=== PATIENT | male | born 1990 | race Caucasian/White ===

== ENCOUNTER 2018-09-14 00:18 | Emergency (ER) | payer BC ==
[~2018-09-14] VITALS: Ht 193 cm; Wt 100.0 kg
[2018-09-14 00:22] VITALS: TEMP 98.2
[2018-09-14 00:55] LABS: BASO # 0.1 (0.0-0.2); BASO % 0.6 % (0.0-2.0); EOS % 0.1 % (0-4.0); GRAN # 6.1 (1.4-6.5); GRAN % 78.2 % (42.2-75.2); LYMPH % 13.3 % (20.0-51.0); MEAN CELL VOLUME 98 fl (80.0-100.0); MEAN CORPUSCULAR HGB CONC 37 g/dl (33.0-37.0); MEAN PLATELET VOLUME 9.8 fl (7.4-10.4); MONO # 0.6 (0.1-0.6); MONO % 7.4 % (1.7-9.3); PLATELET COUNT 130 K/mm3 (130-400); RED BLOOD COUNT 5.45 M/mm3 (4.20-5.60); REDCELL DISTRIBUTION WIDTH-CV 13.2 % (11.5-14.5)
[2018-09-14 00:56] LABS: HEMATOCRIT 53.4 % (42.0-52.0); HEMOGLOBIN 19.5 g/dl (13.5-18.0); MEAN CORPUSCULAR HEMOGLOBIN 36 pg (27.0-31.0)
[2018-09-14 01:04] LABS: ALANINE AMINOTRANSFERASE 199 U/L (21-72); ALBUMIN 4.9 gm/dL (3.5-5.0); ALKALINE PHOSPHATASE 83 U/L (50-136); ANION GAP 19 mmol/L (7-16); AST,SGOT 157 U/L (15-37); BILIRUBIN,TOTAL 4.1 mg/dL (0.0-1.0); BLOOD UREA NITROGEN 7 mg/dL (9-20); CALCIUM 9.3 mg/dL (8.4-10.2); CARBON DIOXIDE 24 mmol/L (22-30); CHLORIDE 92 mmol/L (98-107); CREATININE, serum 0.76 (0.66-1.25); GLUCOSE 129 mg/dL (74-106); POTASSIUM 3.4 mmol/L (3.4-5.0); SODIUM 135 mmol/L (137-145); TOTAL PROTEIN 8.2 gm/dL (6.4-8.2)
[2018-09-14 01:16] LABS: PROTHROMBIN TIME 11.3 SECONDS (9.7-12.8)
[2018-09-14 01:23] LABS: ALCOHOL(ethanol),MEDICAL < 10 mg/dL
[2018-09-14] MEDS ORDERED: LIBRIUM 25M25 MG/CAP PO (03:11)
[2018-09-14 03:33] VITALS: BP 158/108; PULSE 71
== END 2018-09-14 03:33 | disposition home or self-care (01) ==
LOC: COL.ER 00:18
PROVIDERS: Physician Assistant
DX: F10.239 Alcohol dependence with withdrawal, unspecified (principal)
CPT/HCPCS: J2560; J3360; J3475; J7030

== ENCOUNTER 2018-10-11 01:11 | Emergency (ER) | payer BC ==
[~2018-10-11] VITALS: Ht 193 cm; Wt 100.0 kg
[~2018-10-11 01:11] MED LIST: LIBRIUM 25M25 MG/CAP PO
[2018-10-11 01:14] VITALS: BP 160/99; PULSE 120; TEMP 98
[2018-10-11 01:30] LABS: BASO # 0.1 (0.0-0.2); BASO % 1.2 % (0.0-2.0); EOS # 0.2 (0.0-0.7); EOS % 2.1 % (0-4.0); GRAN # 3.9 (1.4-6.5); GRAN % 52.3 % (42.2-75.2); HEMATOCRIT 49.1 % (42.0-52.0); LYMPH # 2.7 (1.2-3.4); LYMPH % 36.4 % (20.0-51.0); MEAN CELL VOLUME 97 fl (80.0-100.0); MEAN CORPUSCULAR HEMOGLOBIN 36 pg (27.0-31.0); MEAN CORPUSCULAR HGB CONC 37 g/dl (33.0-37.0); MEAN PLATELET VOLUME 9.8 fl (7.4-10.4); MONO # 0.6 (0.1-0.6); MONO % 7.3 % (1.7-9.3); PLATELET COUNT 211 K/mm3 (130-400); RED BLOOD COUNT 5.07 M/mm3 (4.20-5.60); REDCELL DISTRIBUTION WIDTH-CV 11.9 % (11.5-14.5)
[2018-10-11 01:33] LABS: HEMOGLOBIN 18.1 g/dl (13.5-18.0)
[2018-10-11 02:02] LABS: ACETAMINOPHEN < 10 ug/mL (10-30); ALANINE AMINOTRANSFERASE 107 U/L (21-72); ALBUMIN 4.7 gm/dL (3.5-5.0); ALKALINE PHOSPHATASE 76 U/L (50-136); ANION GAP 18 mmol/L (7-16); AST,SGOT 74 U/L (15-37); BILIRUBIN,TOTAL 0.6 mg/dL (0.0-1.0); BLOOD UREA NITROGEN 9 mg/dL (9-20); CALCIUM 9.3 mg/dL (8.4-10.2); CARBON DIOXIDE 20 mmol/L (22-30); CHLORIDE 114 mmol/L (98-107); CREATININE, serum 1.15 (0.66-1.25); GLUCOSE 139 mg/dL (74-106); POTASSIUM 3.8 mmol/L (3.4-5.0); SODIUM 152 mmol/L (137-145); TOTAL PROTEIN 7.8 gm/dL (6.4-8.2)
[2018-10-11 02:03] LABS: SALICYLATE < 1.0 mg/dL
[2018-10-11 02:09] LABS: ALCOHOL(ethanol),MEDICAL 409 mg/dL
== END 2018-10-11 04:03 | disposition left against medical advice (07) ==
LOC: COL.ER 01:11
PROVIDERS: Emergency Medicine
DX: F10.229 Alcohol dependence with intoxication, unspecified (principal); R41.82 Altered mental status, unspecified; F12.90 Cannabis use, unspecified, uncomplicated; F17.220 Nicotine dependence, chewing tobacco, uncomplicated; Y90.8 Blood alcohol level of 240 mg/100 ml or more
CPT/HCPCS: J2405; J7030

== ENCOUNTER 2019-04-02 02:35 | Emergency (ER) | payer BC ==
[~2019-04-02] VITALS: Ht 193 cm; Wt 100.0 kg
[2019-04-02 02:37] VITALS: TEMP 98.7
[2019-04-02 07:00] VITALS: BP 119/64; PULSE 85
== END 2019-04-02 07:10 | disposition home or self-care (01) ==
LOC: COL.ER 02:35
DX: F10.129 Alcohol abuse with intoxication, unspecified (principal); Y90.8 Blood alcohol level of 240 mg/100 ml or more
CPT/HCPCS: J2765; J7030